=== PATIENT | female | born 1950 | race Caucasian/White ===

== ENCOUNTER 2019-08-15 00:01 | Emergency (ER) | payer OTHER ==
[2019-08-15 00:18] VITALS: BP 126/82; PULSE 72; TEMP 97.5; BMI 19.5
--- NOTE | 2019-08-15 00:47 | PDOC ---
History of Present Illness - General Chief Complaint: Lightheaded Stated Complaint: DIZZINESS Time Seen by Provider: 08/15/19 00:31 - History of Present Illness Initial Comments: 08/15/19 01:27 This 69-year-old woman with a history of chronic headache and episodes of vertigo in the distant past presents with nausea/vomiting/diarrhea and vertigo. Patient states that she ate dinner at approximately 6:30 PM this evening; at 9 :30 PM, she began to have nausea and vomiting along with sensation of room spinning. Emesis was partially digested meals; no blood or coffee grounds. She also had few episodes of loose stool after this. No blood or mucus in BM. Since then, she has noted persistent nausea and vertigo especially when she is in the supine position. Patient has meclizine tablets at home but was too nauseous to take any medications for her vertigo. She denies facial weakness, difficulty speaking, extremity weakness; she was able to ambulate into the ER but states that she felt slightly unbalanced when walking. Past History - Past Medical History Allergies/Adverse Reactions: Allergies Allergy/AdvReac Type Severity Reaction Status Date / Time No Known Allergies Allergy Unverified 08/15/19 00:16 Home Medications: Ambulatory Orders Alprazolam [Xanax] 0.5 mg PO DAILY 08/15/19 Butalb/Acetaminophen/Caffeine [[id number] 50-325-40] 1 each PO DAILY 08/15/19 Ondansetron [Zofran *Odt*] 4 mg SL BID PRN #10 od.tablet 08/15/19 COPD: No - Psycho Social/Smoking Cessation Hx Smoking History: Unknown if ever smoked Have you smoked in the past 12 months: No Number of Cigarettes Smoked Daily: 0 Information on smoking cessation initiated: No Hx Alcohol Use: No Drug/Substance Use Hx: No Review of Systems - Review of Systems Able to Perform ROS?: Yes Comments:: 12 point review of systems is negative except for what is noted in the history of present illness *Physical Exam - Vital Signs Last Vital Signs Temp Pulse Resp BP Pulse Ox 97.5 F L 72 14 126/82 100 08/15/19 00:14 08/15/19 00:14 08/15/19 00:14 08/15/19 00:14 08/15/19 00:14 - Physical Exam GENERAL: Adult female, alert and oriented x3, in mild distress secondary nausea HEAD: Normal with no signs of trauma. EYES: PERRLA, EOMI, sclera anicteric, conjunctiva clear. ENT: Ears normal, nares patent, oropharynx clear without exudates. Dry mucous membranes. NECK: Normal range of motion, supple without lymphadenopathy, JVD, or masses. LUNGS: Breath sounds equal, clear to auscultation bilaterally. No wheezes, and no crackles. HEART:Regular rate and rhythm, normal S1 and S2 without murmur, rub or gallop. ABDOMEN:.normal bowel sounds No guarding,tenderness or rebound.No masses No distention. EXTREMITIES: Normal range of motion, no edema. No clubbing or cyanosis. No erythema, or tenderness. NEUROLOGICAL: Cranial nerves II through XII grossly intact. Normal speech. No focal neurological deficits . MUSCULOSKELETAL: Back non-tender to palpation, no CVA tenderness SKIN: Warm, Dry, normal turgor, no rashes or lesions noted. Medical Decision Making - Medical Decision Making This 69-year-old woman with a history of chronic headache presented with several hours of nausea/vomiting/diarrhea and subsequent vertigo. Exam as noted. IV access obtained and patient received a liter normal saline hydration as well as Zofran 4 mg IV for treatment of her nausea/vomiting. After IV hydration and medication, patient was comfortable with no further vertigo (patient was lying supine which had been a trigger for the vertigo; she was comfortable without any evidence of vertigo after hydration and Zofran.) Also, patient had resolution of her nausea/vomiting. Clinical presentation is most likely gastroenteritis, subsequent dehydration and benign peripheral vertigo. Patient here had resolution of her vertigo after IV hydration. Prescription for Zofran ODT 4 mg to be taken as needed for nausea sent to her pharmacy. He should return to the ER if she has persistent vomiting or persistent vertigo. Otherwise, she should follow-up with her doctor within the next 2 days Discharge - Discharge Information Problems reviewed: Yes Clinical Impression/Diagnosis: Vomiting Qualifiers: Vomiting type: unspecified Vomiting Intractability: non-intractable Nausea presence: with nausea Qualified Code(s): R11.2 - Nausea with vomiting, unspecified Condition: Stable Disposition: HOME - Additional Discharge Information Prescriptions: Ondansetron [Zofran *Odt*] 4 mg SL BID PRN #10 od.tablet PRN Reason: Nausea - Follow up/Referral - Patient Discharge Instructions Patient Printed Discharge Instructions: DI for Viral Gastroenteritis -- Adult Additional Instructions: Clear liquids, advance diet cautiously Zofran ODT 4 mg up to twice a day as needed for nausea Meclizine as previously prescribed as needed for vertigo Return to ER if you have persistent vomiting, persistent vertigo or abdominal pain Follow-up with your general doctor within the next 2 days - Post Discharge Activity
[2019-08-15] MEDS ORDERED: ONDANSETRON 4 MG/2 ML VIAL IVPUSH ONE (01:17)
[2019-08-15] MEDS ORDERED: SODIUM CHLORIDE 1,000 ML IV STA (01:17)
[2019-08-15] MEDS ORDERED: ONDANSETRON 4 MG/2 ML VIAL ONE (01:39)
== END 2019-08-15 03:27 | disposition home or self-care (01) ==
LOC: FER 00:01
PROC: 3E033GC Introduction of Other Therapeutic Substance into Peripheral Vein, Percutaneous Approach (ICD-10-PCS; principal; 2019-08-15)
DX: R11.2 Nausea with vomiting, unspecified (principal); G89.29 Other chronic pain
CPT/HCPCS: 99282-25; J7030